=== PATIENT | female | born 1995 | race Caucasian/White ===

== ENCOUNTER 2021-02-13 17:15 | Emergency (ER) | payer MEDICAID, SELFPAY ==
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
[2021-02-13 17:30] VITALS: BP 103/68; PULSE 86; RESP 20; TEMP 36.8; O2SAT 100
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
[2021-02-13] MEDS: diazePAM (*CRX) 5 MG TABLET PO (19:36)
[2021-02-13] MEDS: KETOROLAC (*BKC) 60 MG/2 ML VIAL IM (19:36)
== END 2021-02-13 20:06 | disposition home or self-care (01) ==
PROVIDERS: Emergency Provider Nurse Practitioner
DX: S39.92XA Unspecified injury of lower back, initial encounter (principal); V86.55XA Driver of 3- or 4- wheeled all-terrain vehicle (ATV) injured in nontraffic accident, initial encounter
CPT/HCPCS: 72072; 72100; 96372; 99283; A9270; J1885